=== PATIENT | male | born 1940 | race Caucasian/White ===

== ENCOUNTER 2016-08-02 16:53 | Emergency (ER) ==
[2016-08-02] MEDS ORDERED: SODIUM CHLORIDE 1,000 ML IV STA (16:58)
[2016-08-02 16:59] VITALS: BP 157/96; TEMP 98; BMI 33.3
--- NOTE | 2016-08-02 17:17 | ED.PDOC ---
General ED Provider: Dr. AMAN HUFF JR Chief Complaint: Dizziness Stated Complaint: AT 15OO UNSTEADY ON FEET, THICK TONGUE NO FOCAL DEFECITS, DENIES HEADACHE A&O X 3 woke up from nap with head spinning-- dizzymovement does not affect --head foggy--sl headache--speech and thought process clear-- denies being ill prior to event--. [ End ]since 1500 98.0 87 24 95% 157/96 4/10 Time Seen by Physician: 17:16 Mode of Arrival: Stretcher Information Source: Patient, EMT Exam Limitations: No limitations Primary Care Provider: DAYAMI LAZARO Nursing and Triage Documentation Reviewed and Agree: No Review of Systems - Review Of Systems Constitutional: Reports: Weakness Eyes: Reports: No symptoms Ears, Nose, Mouth, Throat: Reports: No symptoms Respiratory: Reports: No symptoms Cardiac: Reports: No symptoms GI: Reports: No symptoms : Reports: No symptoms Musculoskeletal: Reports: No symptoms Skin: Reports: No symptoms Neurological: Reports: Headache (vertigo AND headache), Weakness (STUMBLING GAIT ), Other (DIZZY) Endocrine: Reports: No symptoms (states blood sugar at home was 285) Hematologic/Lymphatic: Reports: No symptoms (states blood sugar at home was 285vertigo dm headache) All Other Systems: Other Past Medical History - Past Medical History Previously Healthy: Yes Endocrine: Reports: DM 2, Dyslipidemia Cardiovascular: Reports: CAD, Hypertension Respiratory: Reports: Unknown (pulmonary problems) Hematological: Reports: None Gastrointestinal: Reports: Unknown (gi problems) Genitourinary: Reports: Kidney stones Neuro/Psych: Reports: None Musculoskeletal: Reports: Arthritis, Gout Cancer: Reports: None - Surgical History General Surgical History: Reports: Cholecystectomy, Tonsillectomy, Hernia Repair , Other (sinus surg--artery bypass--), Unknown - Family History Family History: Reports: Unknown - Social History Smoking Status: Never smoker Hx Substance Use: No Alcohol Screening: None Physical Exam - Physical Exam Appearance: Well-appearing, Obese Ill-appearing: Moderate Pain Distress: Mild Eyes: EDVIN, EOMI, Conjunctiva clear ENT: Ears normal, Nose normal, Oropharynx normal Neck: Supple Respiratory: Airway patent, Breath sounds clear, Breath sounds equal, Respirations nonlabored Cardiovascular: RRR, Pulses normal, No rub, No murmur GI/: Soft, Nontender, No masses, Bowel sounds normal, No Organomegaly Musculoskeletal: Normal strength, ROM intact, No calf tenderness, Edema (LEFT 1 + RIGHT TRACE TENDER RIGHT ANT RANDLE BELOW KNEE) Skin: Warm, Dry, Normal color (NOTE LOWER ABDOMEN BRUISING IS USING INSULIN) Neurological: Sensation intact, Motor intact, Reflexes intact, Cranial nerves intact, Alert, Oriented Psychiatric: Affect appropriate, Mood appropriate, Anxious Interpretation - EKG Interpretation Time of EKG #1: 17:50 Rate: Normal Rhythm: Sinus [place]: Left (LVH) ST Segment: Other (LAFB IRBBB) Interpretation: NONACUTE NOTE HISTORY OF DIAPHRAGMATIC DYSFUNCTION Re-Evaluation - Re-Evaluation Time of Re-Evaluation: 19:17 Status: Improved (essentially resolved on initial exam no focal signs at home or in er) Critical Care Note - Critical Care Note Total Time (mins): 10 Course - Course Hematology/Chemistry: 08/02/16 17:25 08/02/16 17:25 Orders, Labs, Meds: Lab Review 08/02/16 17:25 WBC 9.66 RBC 4.42 L Hgb 13.0 L Hct 38.7 L MCV 87.6 MCH 29.4 MCHC 33.6 RDW Coeff of Dennis 14.0 Plt Count 248 Immature Gran % (Auto) 0.3 Neut % (Auto) 68.8 Lymph % (Auto) 16.7 [place] % (Auto) 9.9 Eos % (Auto) 3.6 Baso % (Auto) 0.7 Immature Gran # (Auto) 0.0 Neut # 6.6 Lymph # 1.6 [place] # 1.0 Eos # 0.4 Baso # 0.1 D-Dimer 0.67 Sodium 142 Potassium 4.0 Chloride 105 Carbon Dioxide 26 Anion Gap 15.0 BUN 16 Creatinine 0.85 Estimated GFR (MDRD) 88.00 BUN/Creatinine Ratio 18.82 Glucose 82 Calcium 9.4 Total Bilirubin 0.45 AST 21 ALT 25 Alkaline Phosphatase 66 Total Creatine Kinase 354 CK-MB (CK-2) 6.2 H* CK-MB (CK-2) % 1.37166 Troponin I 0.0190 B-Natriuretic Peptide 66 Total Protein 6.8 Albumin 3.8 Globulin 3.0 Albumin/Globulin Ratio 1.27 Orders Category Date Time Status EKG-(ED ONLY) Stat CARDIO 08/02/16 16:58 Completed ED APPLY O2 .ONCE EMERGENCY 08/02/16 17:03 Active ED PAINTER SIGN MAINTENANCE APPLIED .ONCE EMERGENCY 08/02/16 17:03 Active ED IV/MEDIPORT/POWERPORT .ONCE EMERGENCY 08/02/16 16:58 Active B-TYPE NATRIURETIC PEPTIDE Stat LAB 08/02/16 17:25 Completed CBC W/ AUTO DIFF Stat LAB 08/02/16 17:25 Completed COMPREHENSIVE METABOLIC PANEL Stat LAB 08/02/16 17:25 Completed CREATINE KINASE Stat LAB 08/02/16 17:25 Completed D-DIMER Stat LAB 08/02/16 17:25 Completed TROPONIN I Stat LAB 08/02/16 17:25 Completed 0.9 % Sodium Chloride [Saline Flush] MEDS 08/02/16 16:58 Ordered 1 syr IVF PRN PRN Sodium Chloride 0.9% [Sodium Chloride] 1,000 ml MEDS 08/02/16 16:58 Active IV 100 mls/hr CHEST, 1V AP ONLY Stat RADS 08/02/16 16:[address] HEAD W/O CONTRAST Stat RADS 08/02/16 17:12 Completed Medications Generic Name Dose Route Start Last Admin Trade Name Freq PRN Reason Stop Dose Admin Sodium Chloride 1,000 mls @ 100 mls/hr 08/02/16 16:58 08/02/16 17:17 Sodium Chloride IV 08/03/16 02:57 100 mls/hr .Q10H STA Administration Sodium Chloride 1 syr 08/02/16 16:58 Saline Flush IVF PRN PRN To flush IV Vital Signs: Temp Pulse Resp BP Pulse Ox 08/02/16 16:53 98 F 87 24 157/96 H 95 Departure - Departure Time of Disposition: 19:17 Disposition: HOME SELF-CARE Discharge Problem: Viral syndrome Instructions: Viral Syndrome (ED) Condition: Good Pt referred to PMD for follow-up: Yes Additional Instructions: call PMD in morning for follow up recommend discuss home health care NEED TO EAT SUPPER- SUGAR IS LOW NORMAL 82 Tylenol for pain, would take Tylenol twice a day for three days and as needed up to four doses a day increase fluids for three days Allergies/Adverse Reactions: Allergies Iodinated Contrast Media - Oral and Adverse Reaction (Verified 03/20/16 14:06) Home Medications: Ambulatory Orders Allopurinol 150 mg PO BEDTIME 07/22/13 Aspirin [Aspirin Chewable] 81 mg PO DAILYWM 07/22/13 Carvedilol [Coreg] 12.5 mg PO BID 07/22/13 Clopidogrel Bisulfate [Plavix] 75 mg PO BEDTIME 07/22/13 Duloxetine HCl [Cymbalta] 60 mg PO BEDTIME 07/22/13 Insulin Glargine,Hum.rec.anlog [Lantus] 80 unit SUBCUT BID 07/22/13 Insulin Lispro [Humalog] 20 unit SUBCUT ONCE PRN 07/22/13 Isosorbide Mononitrate [Isosorbide Mononitrate ER] 15 mg PO BEDTIME 07/22/13 Hopkins-3 Fatty Acids/Fish Oil [Fish Oil 1,000 mg Softgel] 3 each PO BID 07/22/13 Rabeprazole Sodium [Aciphex] 20 mg PO DAILY 07/22/13 Ranitidine HCl [Zantac] 150 mg PO QDAC 07/22/13 Rosuvastatin Calcium [Crestor] 5 mg PO BEDTIME 07/22/13 Ubidecarenone [Coq10] 100 mg PO DAILY 07/22/13
[2016-08-02 17:36] LABS: BASOPHILS # (AUTO) 0.1 K/uL (0-0.2); BASOPHILS % (AUTO) 0.7 % (0.0-3.0); EOSINOPHILS # (AUTO) 0.4 K/ul (0.0-0.7); EOSINOPHILS % (AUTO) 3.6 % (0.0-7.0); HEMATOCRIT 38.7 % (42.0-52.0); IMMATURE GRANULOCYTE % (AUTO) 0.3 % (0.0-5.0); LYMPHOCYTES # (AUTO) 1.6 K/uL (0.60-3.4); LYMPHOCYTES % (AUTO) 16.7 (10.0-50.0); MEAN CORPUSCULAR HEMOGLOBIN 29.4 pg (27.0-31.0); MEAN CORPUSCULAR HGB CONC 33.6 (31.8-35.4); MEAN CORPUSCULAR VOLUME 87.6 fl (80.0-94.0); MONOCYTES % (AUTO) 9.9 (0-10); NEUTROPHILS # (AUTO) 6.6 K/ul (2.0-6.9); NEUTROPHILS % (AUTO) 68.8; PLATELET COUNT 248 10^3/uL (140-440); RED BLOOD COUNT 4.42 10^6/ul (4.70-6.10); WHITE BLOOD COUNT 9.66 K/ul (4.2-10.2)
--- NOTE | 2016-08-02 18:08 | CT ---
EXAM: CT head without contrast HISTORY: thick tongue with stumbling gait COMPARISON: None TECHNIQUE: Serial axial images of the brain were obtained from the skull base to the vertex without IV contrast. FINDINGS: The ventricles, cisterns and sulci demonstrate mild generalized volume loss. The hays-wh ite matter junction is maintained. There is low attenuation consistent with microangiopathy in the periventricular white matter.No midline shift or mass is identified. There is no abnormal intra or extra-axial fluid collection. The paranasal sinuses demonstrate mild mucosal thickening and paranas al sinus surgery. The mastoid air cells are clear. The osseous calvarium is intact. IMPRESSION: No acute intracranial abnormality or hemorrhage. If further evaluation is clinically in dicated, MRI may be obtained. Paranasal sinus mucosal thickening with evidence of previous surgery. Mild generalized volume loss and microangiopathy.
[2016-08-02 18:28] LABS: ALBUMIN 3.8 g/dL (3.4-5.0); ALBUMIN/GLOBULIN RATIO 1.27; BILIRUBIN,TOTAL 0.45 mg/dL (0.00-1.20); BUN/CREATININE RATIO 18.82; CALCIUM 9.4 mg/dL (8.2-10.2); CREATININE 0.85 mg/dL (0.60-1.10); TOTAL PROTEIN 6.8 g/dL (5.8-8.1); TROPONIN I 0.019 ng/ml (0.0000-0.4000)
[2016-08-02 18:30] LABS: CREATINE KINASE MB 6.2 ng/ml (0.0-3.6)
--- NOTE | 2016-08-02 19:18 | DI ---
EXAM: Chest, single view 08/02/2016 HISTORY: Chest pain COMPARISON: 06/08/2016 FINDINGS / IMPRESSION: Cardiomediastinal contours appear enlarged. Postoperative changes of the me diastinum. Bibasilar interstitial infiltrates likely due to a combination of atelectasis, pulmonary edema and/o r pneumonia. Small pleural effusions not excluded. No pneumothorax.
== END 2016-08-02 19:29 | disposition home or self-care (01) ==
LOC: ED 16:53
DX: B34.9 Viral infection, unspecified (principal); E11.9 Type 2 diabetes mellitus without complications; E78.5 Hyperlipidemia, unspecified; I10 Essential (primary) hypertension; I25.10 Atherosclerotic heart disease of native coronary artery without angina pectoris; R60.0 Localized edema; R42 Dizziness and giddiness; R26.81 Unsteadiness on feet; Z79.899 Other long term (current) drug therapy
CPT/HCPCS: 36415; 80053; 82550; 82553; 83880; 84484; 85025; 85379; 93005; 93010; 96361; 99283; 99285

== ENCOUNTER 2016-08-10 15:30 | Outpatient (CLI) | payer OTHER | END 2016-08-10 15:31 | disposition home or self-care (01) | LOC: LAB 15:30 | PROVIDERS: ATTEND Nurse Practitioner Family | DX: I50.32 Chronic diastolic (congestive) heart failure (principal); R06.00 Dyspnea, unspecified | CPT/HCPCS: 36415; 83880 ==

== ENCOUNTER 2016-08-31 14:33 | Outpatient (CLI) ==
--- NOTE | 2016-08-31 15:21 | DI ---
EXAM: Two views of the chest. History: Dyspnea. Comparison: Chest radiograph 08/30/2016 Findings: Heart is mildly enlarged. Sternotomy wires. No focal consolidation. No appreciable ple ural fluid and no pneumothorax. Basilar subsegmental atelectasis. No acute osseous abnormalities. Surgical clips seen within the upper abdomen. Impression: No acute cardiopulmonary process.
== END 2016-08-31 14:34 | disposition home or self-care (01) ==
LOC: RAD 14:33
PROVIDERS: ATTEND Nurse Practitioner Family
DX: J98.8 Other specified respiratory disorders (principal); R06.00 Dyspnea, unspecified

== ENCOUNTER 2017-11-01 12:45 | Outpatient (CLI) | payer OTHER ==
--- NOTE | 2017-11-01 14:03 | CT ---
EXAM: CT abdomen and pelvis without contrast HISTORY: Night sweats TECHNIQUE: Multi-slice transaxial helical with coronal and sagittal reformed images COMPARISON: CT abdomen/pelvis from 03/03/2014 FINDINGS: The ascending thoracic aorta is ectatic to 35.8 mm. The descending thoracic aorta has norm al caliber. Post CABG changes are noted. The heart is mildly enlarged. No pericardial or pleural e ffusions are detected. The dependent lungs are atelectatic. Minimal bronchiectasis is noted. Minim al gynecomastia is also noted. The hepatic attenuation is normal relative to the spleen. The spleen has normal size attenuation. T he gallbladder surgically absent without biliary dilatation. There are punctate calcifications in th e pancreas suggesting chronic pancreatitis. There is a chronic nonobstructing calculus at the inferior pole of the right kidney measuring 4.1 mm that is unchanged. The kidneys otherwise maintain normal attenuation. No ureterolithiasis or ureter al pelvicaliectasis. A small diverticulum is noted at the posterior right side of the bladder. Blad mikal is otherwise normal. A ventral hernia has been repaired with mesh in the past. The prostate has normal size. The intestines have normal caliber. Diverticula arise from the large bowel without CT evidence of diverticulitis. Surgical clips are noted in the left upper abdomen diffusely. No lympha denopathy or ascites are appreciated. The abdominal aorta is atherosclerotic with normal caliber. The bones are free of suspicious osteolytic or osteoblastic lesions. IMPRESSION: 1. No CT exudation the patient is night sweats. 2. Ectasia of the ascending thoracic aorta to 35.8 mm, post CABG changes and mild cardiomegaly. 3. Minimal bronchiectasis. 4. Diffuse colonic diverticulosis without CT evidence of diverticulitis. 6. Small bladder diverticulum. 7. No lymphadenopathy or ascites. 8. Nonobstructing right nephrolith, unchanged.
--- NOTE | 2017-11-01 14:06 | CT ---
EXAM: CT chest without contrast HISTORY: Night sweats TECHNIQUE: Multi-slice transaxial helical with coronal and sagittal reformed images CONTRAST: None COMPARISON: CT chest from 11/01/2017 and prior chest radiograph series from 08/31/2016 FINDINGS: The right hemidiaphragm is mildly elevated with subjacent compressive atelectasis. The asc ending thoracic aorta is ectatic to 37.4 mm. The descending thoracic aorta and aortic arch have norm al caliber. Post CABG changes are noted. The heart is mildly enlarged. No hepatic mass seen and br onchiectasis are noted. No suspicious lymphadenopathy is detected. Minimal dependent atelectasis is noted. No pulmonary nodules or masses are evident. No acute consolidation is appreciated. Please refer to the CT abdomen report from 11/01/2017 for details in the upper abdomen. The bones are free of suspicious osteolytic or osteoblastic lesions. IMPRESSION: 1. No CT explanation for the patient's night sweats. 2. Ectasia of the ascending thoracic aorta is 37.4 mm. 3. Mild cardiomegaly and post CABG changes. 4. Minimal bronchiectasis without mucus plugging. 5. By atelectasis. 6. Mild elevation of the right kaur diaphragm with adjacent breast atelectasis.
== END 2017-11-01 12:46 | disposition home or self-care (01) ==
LOC: RAD 12:45
PROVIDERS: ATTEND Family Medicine
DX: R61 Generalized hyperhidrosis (principal)

== ENCOUNTER 2018-07-30 12:58 | Outpatient (CLI) ==
[2018-07-30 13:21] VITALS: BP 137/79; TEMP 98
[2018-07-30] MEDS ORDERED: LIDOCAINE HCL 1% SDV IM STA (13:28)
[2018-07-30] MEDS ORDERED: INVANZ IM STA (13:28)
[2018-07-30] MEDS ORDERED: INVANZ 1 GM in SODIUM CHLORIDE 50 ML IV STA (13:33)
== END 2018-07-30 12:59 | disposition home or self-care (01) ==
LOC: OPMED 12:58
PROVIDERS: ATTEND Internal Medicine Infectious Disease
DX: N30.80 Other cystitis without hematuria (principal)
CPT/HCPCS: 96365

== ENCOUNTER 2018-07-31 13:00 | Outpatient (CLI) | payer OTHER ==
[2018-07-31 13:37] VITALS: BP 141/66; TEMP 98.2
[2018-07-31] MEDS ORDERED: LIDOCAINE HCL 1% SDV IM STA (13:40)
[2018-07-31] MEDS ORDERED: INVANZ IM STA (13:40)
[2018-07-31] MEDS ORDERED: INVANZ 1 GM in SODIUM CHLORIDE 50 ML IV STA (13:45)
== END 2018-07-31 13:01 | disposition home or self-care (01) ==
LOC: OPMED 13:00
PROVIDERS: ATTEND Internal Medicine Infectious Disease
DX: N30.80 Other cystitis without hematuria (principal)
CPT/HCPCS: 96365

== ENCOUNTER 2018-08-01 12:59 | Outpatient (CLI) | payer OTHER ==
[2018-08-01 13:11] VITALS: BP 139/81; TEMP 97.6
[2018-08-01] MEDS ORDERED: INVANZ 1 GM in SODIUM CHLORIDE 50 ML IV STA (13:15)
== END 2018-08-01 13:00 | disposition home or self-care (01) ==
LOC: OPMED 12:59
PROVIDERS: ATTEND Internal Medicine Infectious Disease
DX: N30.80 Other cystitis without hematuria (principal)
CPT/HCPCS: 96365

== ENCOUNTER 2018-08-02 13:17 | Outpatient (CLI) | payer OTHER ==
[2018-08-02] MEDS ORDERED: INVANZ 1 GM in SODIUM CHLORIDE 50 ML IV STA (13:48)
[2018-08-02] MEDS ORDERED: INVANZ ONE (13:55)
== END 2018-08-02 13:18 | disposition home or self-care (01) ==
LOC: OPMED 13:17
PROVIDERS: ATTEND Internal Medicine Infectious Disease
DX: N30.80 Other cystitis without hematuria (principal)
CPT/HCPCS: 96365

== ENCOUNTER 2018-08-03 12:41 | Outpatient (CLI) | payer OTHER ==
[~2018-08-03 12:41] MED LIST: INVANZ 1 GM in SODIUM CHLORIDE 50 ML IV STA
[2018-08-03 13:42] VITALS: BP 119/66; TEMP 97.5
== END 2018-08-03 12:42 | disposition home or self-care (01) ==
LOC: OPMED 12:41
PROVIDERS: ATTEND Internal Medicine Infectious Disease
DX: N30.80 Other cystitis without hematuria (principal)
CPT/HCPCS: 96365

== ENCOUNTER 2018-08-04 13:07 | Outpatient (CLI) ==
[2018-08-04 13:20] VITALS: BP 139/74; TEMP 98
[2018-08-04] MEDS ORDERED: INVANZ 1 GM in SODIUM CHLORIDE 50 ML IV STA (13:21)
== END 2018-08-04 13:08 | disposition home or self-care (01) ==
LOC: OPMED 13:07
PROVIDERS: ATTEND Internal Medicine Infectious Disease
DX: N30.80 Other cystitis without hematuria (principal)
CPT/HCPCS: 96365

== ENCOUNTER 2018-08-05 12:50 | Outpatient (CLI) ==
[2018-08-05] MEDS ORDERED: INVANZ 1 GM in SODIUM CHLORIDE 50 ML IV STA (13:23)
[2018-08-05 13:32] VITALS: BP 145/78; TEMP 97.9
== END 2018-08-05 12:51 | disposition home or self-care (01) ==
LOC: OPMED 12:50
PROVIDERS: ATTEND Internal Medicine Infectious Disease
DX: N30.80 Other cystitis without hematuria (principal)
CPT/HCPCS: 96365